=== PATIENT | female | born 1995 | race Asian ===

== ENCOUNTER 2020-01-17 22:11 | Emergency (ER) | payer OTHER ==
[~2020-01-17] VITALS: Ht 157.5 cm; Wt 69.4 kg
[2020-01-17] MEDS ORDERED: DEXAMETHASONE SOD PHOS 10 MG/1 ML VIAL IM ONE (22:45)
[2020-01-17] MEDS ORDERED: HYDROCODONE/APAP 5MG-325MG TAB PO ONE (22:45)
[2020-01-17] MEDS ORDERED: CYCLOBENZAPRINE HCL 10 MG TAB PO ONE (22:45)
[2020-01-17] MEDS ORDERED: DEXAMETHASONE SOD PHOS 10 MG/1 ML VIAL ONE (22:47)
[2020-01-17] MEDS ORDERED: CYCLOBENZAPRINE HCL 10 MG TAB ONE (22:47)
[2020-01-17] MEDS ORDERED: HYDROCODONE/APAP 5MG-325MG TAB ONE (22:48)
--- NOTE | 2020-01-17 23:19 | Diagnostic Imaging Report ---
Lumbar Spine Radiographs: 3 views HISTORY: Pain COMPARISON: None available. DISCUSSION: Some of the osseous structures are partially obscured by stool and bowel gas. There are five non-rib bearing lumbar vertebral bodies. The alignment of the spine is within normal limits. No displaced fracture or compression deformity is identified. Disc Spaces: The disc spaces are well maintained. Facets: The facet joints are unremarkable. IMPRESSION: No acute radiographic abnormality. Signed by: Dr. Christophe Christensen MD on 01/17/2020 11:15 PM
--- NOTE | 2020-01-17 23:30 | Emergency Department Note ---
History of Present Illnes History of Present Illness Chief Complaint: Back Pain History of Present Illness This is a 24 year old female Chief Complaint Comment PT C/O LOW BACK PAIN THAT RADIATES DOWN BOTH LEGS, STATES PAIN HAS BEEN INTERMITTENT FOR PAST 6 MONTHS NOW, HAS HAS BIMONTHLY ACCUPUNCTURE SESSIONS AND HAVE ALWASY HELPED BUT PAIN IS NOW UNBEARABLE. PATIENT DENIES ANY HISTORY OF INJURY OR TRAUMA, DENIES ANY PREVIUS BACK PAIN PRIOR TO START OF SYMPTOMS 6 MONTHS AGO . Historian: Patient Arrival Mode: Car Onset (how long ago): month(s) (1) Location: back Quality: sharp Radiation: Denies non-radiation, Denies back, Denies neck, Denies extremity, Denies abdomen, Denies periumbilical, Denies flank, Denies proximal, Denies distal, Denies other Severity: moderate Onset quality: gradual Duration (how long): month(s) (1) Timing of current episode: constant Progression: waxing and waning Chronicity: new Context: Denies recent illness, Denies recent surgery, Denies recent immobilization, Denies recent travel, Denies trauma/injury, Denies new medications, Denies hx of DVT/PE, Denies non-compliance w/ medications, Denies other Relieving factors: rest Exacerbating factors: movement Associated symptoms: Denies denies other symptoms, Denies confusion, Denies chest pain, Denies cough, Denies diaphoresis, Denies fever/chills, Denies headaches, Denies loss of appetite, Denies malaise, Denies nausea/vomiting, Denies rash, Denies seizure, Denies shortness of breath, Denies syncope, Denies weakness, Denies other Treatments prior to arrival: none Past Medical/Family History Physician Review I have reviewed the patient's past medical and family history. Any updates have been documented here. Past Medical History Recent Fever: No Clinical Suspicion of Infectio: No New/Unexplained Change in Ment: No Past Medical History: None Past Surgical History: None Social History Smoking Cessation: Never Smoker Counseling Performed: No Alcohol Use: None Any Illegal Drug Use: No Physically hurt or threatened: No Other Any Pre-Existing Lines (PICC,: No Review of Systems Review of Systems Constitutional: Reports no symptoms EENTM: Reports no symptoms Cardiovascular: Reports no symptoms Respiratory: Reports no symptoms Gastrointestinal: Reports no symptoms Genitourinary: Reports no symptoms Musculoskeletal: Reports as per HPI Integumentary: Reports no symptoms Neurological: Reports no symptoms Psychological: Reports no symptoms Endocrine: Reports no symptoms Hematological/Lymphatic: Reports no symptoms Physical Exam Related Data Allergies: Coded Allergies: No Known Allergies (Unverified , 01/17/20) Triage Vital Signs Vital Signs Date Time Temp Pulse Resp B/P (MAP) Pulse Ox O2 Delivery O2 Flow Rate FiO2 01/17/20 22:20 98.4 95 20 158/64 98 Room Air Vital signs reviewed: Yes Physical Exam CONSTITUTIONAL Constitutional: Present well-developed, Present well-nourished HENT HENT: Present normocephalic, Present atraumatic, Present oropharynx clear/moist, Present nose normal HENT L/R: Present left ext ear normal, Present right ext ear normal EYES Eyes: Reports PERRL, Reports conjunctivae normal NECK Neck: Present ROM normal PULMONARY Pulmonary: Present effort normal, Present breath sounds normal CARDIOVASCULAR Cardiovascular: Present regular rhythm, Present heart sounds normal, Present capillary refill normal, Present normal rate GASTROINTESTINAL Abdominal: Present soft, Present nontender, Present bowel sounds normal GENITOURINARY Genitourinary: Present exam deferred SKIN Skin: Present warm, Present dry MUSCULOSKELETAL Musculoskeletal: Present ROM normal, Present tenderness (lumbar area), Present other NEUROLOGICAL Neurological: Present alert, Present oriented x 3, Present no gross motor or sensory deficits PSYCHOLOGICAL Psychological: Present mood/affect normal, Present judgement normal Results Imaging Imaging results reviewed: Yes Assessment & Plan Medical Decision Making MDM radiculopathy DJD Reassessment Reassessment time: 23:29 Reassessment BETTER Assessment & Plan Final Impression: (1) Acute back pain (2) Radiculopathy, lumbar region Depart Disposition: HOME, SELF-CARE Last Vital Signs Date Time Temp Pulse Resp B/P (MAP) Pulse Ox O2 Delivery O2 Flow Rate FiO2 01/17/20 22:20 98.4 95 20 158/64 98 Room Air Medications in the ED Dexamethasone Sodium Phosphate 10 mg ONCE ONCE IM Last administered on 01/17/20at 22:45; Admin Dose 10 MG; Start 01/17/20 at 22:45; Stop 01/17/20 at 22:46; Status UNV Cyclobenzaprine HCl 10 mg ONCE ONCE PO Last administered on 01/17/20at 22:45; Admin Dose 10 MG; Start 01/17/20 at 22:45; Stop 01/17/20 at 22:46; Status UNV Acetaminophen/ Hydrocodone Bitart 1 ea ONCE ONCE PO Last administered on 01/17/20at 22:45; Admin Dose 1 EA; Start 01/17/20 at 22:45; Stop 01/17/20 at 22:46; Status UNV SUJATHA MCCORMICK MD Jan 17, 2020 23:30
== END 2020-01-17 23:42 | disposition home or self-care (01) ==
LOC: FSED 22:38
DX: M54.16 Radiculopathy, lumbar region (principal)
CPT/HCPCS: 72100; 81025; 99283; J1100